=== PATIENT | male | born 1945 | race Caucasian/White ===

== ENCOUNTER 2018-08-26 16:04 | Emergency (ER) | payer MEDICARE, OTHER ==
[~2018-08-26] VITALS: Ht 182.9 cm; Wt 90.0 kg
[2018-08-26] MEDS ORDERED: normal saline 1000ML IV soln IVB ONE (16:10)
[2018-08-26 16:27] LABS: BASOPHILS % (AUTO) 0.4 % (0-1); EOSINOPHILS # (AUTO) 0.1 X10'3 (0-0.9); EOSINOPHILS % (AUTO) 1.2 % (0-6); HEMATOCRIT 47.6 % (42.0-52.0); LYMPHOCYTES % (AUTO) 23.5 % (21-51); MEAN CORPUSCULAR HEMOGLOBIN 30.8 PG (27.0-31.0); MEAN CORPUSCULAR HGB CONC 33.6 % (33.0-36.5); MEAN CORPUSCULAR VOLUME 91.7 FL (78-98); MEAN PLATELET VOLUME 7.3 FL (7.4-10.4); MONOCYTES # (AUTO) 0.4 X10'3 (0-0.9); MONOCYTES % (AUTO) 8.1 % (2-12); NEUTROPHILS # (AUTO) 2.9 X10'3 (1.8-7.7); NEUTROPHILS % (AUTO) 66.8 % (42-75); PLATELET COUNT 244 X10'3 (140-440); RED BLOOD COUNT 5.19 X10'6 (4.70-6.10); RED CELL DISTRIBUTION WIDTH 13.9 % (11.5-14.5); WHITE BLOOD COUNT 4.3 X10'3 (4.5-11.0)
--- NOTE | 2018-08-26 16:27 | NUR ---
PT'S IS AT BEDSIDE AND PT HAS GONE OUT TO CT [facility]IA [facility] WITH STROKE NURSE RHONDA.
[2018-08-26] MEDS ORDERED: niCARDipine/sod cl 20mg/200ml 200 ML IV SCH (16:40)
[2018-08-26] MEDS ORDERED: niCARDipine/sod cl 20mg/200ml 200 ML IV ONE (16:46)
[2018-08-26 16:48] LABS: PROTHROMBIN TIME 10.1 SECONDS (9.0-12.0)
[2018-08-26] MEDS ORDERED: niCARDipine-NS 40mg/200ml IVPB 200 ML IV SCH ×2 (16:50→16:55)
[2018-08-26 17:10] LABS: ALANINE AMINOTRANSFERASE 67 U/L (12-78); ALBUMIN 4.4 G/DL (3.4-5.0); ALBUMIN/GLOBULIN RATIO 1.3 (1.1-1.5); ALKALINE PHOSPHATASE 64 IU/L (46-116); ANION GAP 13 (8-16); ASPARTATE AMINO TRANSFERASE 41 U/L (10-37); BILIRUBIN,TOTAL 0.8 MG/DL (0.1-1.0); BLOOD UREA NITROGEN 16 MG/DL (7-18); BUN/CREATININE RATIO 16.5 (5.4-32.0); CHLORIDE 101 MMOL/L (99-107); CREATININE 0.97 MG/DL (0.60-1.10); GLUCOSE 155 MG/DL (70-104); POTASSIUM 4.2 MMOL/L (3.5-5.1); SODIUM 141 MMOL/L (135-145); TOTAL PROTEIN 7.8 G/DL (6.4-8.2); TROPONIN I < 0.04 NG/ML (0.0-0.05); eGFR 76 ML/MIN
[2018-08-26] MEDS ORDERED: LISI-600 PO (17:11)
[2018-08-26] MEDS ORDERED: ASPI-845 PO (17:11)
[2018-08-26] MEDS ORDERED: METO-395 PO (17:11)
[2018-08-26] MEDS ORDERED: ROSU10TA PO (17:11)
--- NOTE | 2018-08-26 17:12 | NUR ---
EMS ARRIVES TO TAKE PT TO THE [facility]. PT'S HAS TAKEN ALL OF PT'S BELONGINGS AND IS ON HER WAY OVER TO [facility] NOW.
[2018-08-26 17:13] LABS: ETHANOL < 0.010 GM/DL (0.0-0.010)
[2018-08-26 17:16] VITALS: BP 152/88
--- NOTE | 2018-08-26 17:20 | NUR ---
[facility]
--- NOTE | 2018-08-26 18:09 | NUR ---
DEPARTED AT 1723 TO [facility] BY EMS CODE 3
== END 2018-08-26 17:23 | disposition short-term general hospital (02) ==
LOC: ER 16:05
DX: I61.8 Other nontraumatic intracerebral hemorrhage (principal); R53.1 Weakness; I25.10 Atherosclerotic heart disease of native coronary artery without angina pectoris; E78.00 Pure hypercholesterolemia, unspecified; I10 Essential (primary) hypertension; G89.29 Other chronic pain; Z90.49 Acquired absence of other specified parts of digestive tract; Z95.1 Presence of aortocoronary bypass graft; Z90.89 Acquired absence of other organs; Z98.890 Other specified postprocedural states; Z79.899 Other long term (current) drug therapy; Z79.82 Long term (current) use of aspirin
CPT/HCPCS: 36415; 70450; 71045; 80053; 80320; 84484; 85025; 85610; 93005; 96365; 99291; J7030